=== PATIENT | female | born 1995 | race Caucasian/White ===

== ENCOUNTER 2022-12-19 21:02 | Emergency (ER) | payer OTHER ==
[~2022-12-19] VITALS: Ht 162.6 cm; Wt 68.0 kg
== END 2022-12-20 00:45 | disposition home or self-care (01) ==
LOC: ER 21:02
DX: L23.89 Allergic contact dermatitis due to other agents (principal)

== ENCOUNTER 2024-10-09 13:27 | Emergency (ER) | payer OTHER ==
[~2024-10-09] VITALS: Ht 162.6 cm; Wt 68.0 kg
[2024-10-09] MEDS ORDERED: ACETAMINOPHEN 500 MG GEL..CAP PO ONE (16:30)
[2024-10-09] MEDS ORDERED: 0.9 % SODIUM CHLORIDE 1,000 ML IV ONE (16:30)
[2024-10-09] MEDS ORDERED: ONDANSETRON HCL 2 MG/ML VIAL IV ONE (16:30)
[2024-10-09 17:47] LABS: HEMATOCRIT 34.9 % (36.0-45.00); HEMOGLOBIN 11.8 g/dL (12.0-15.00); MEAN CORPUSCULAR HEMOGLOBIN 28.3 pg (27.00-32.0); MEAN CORPUSCULAR HGB CONC 33.7 g/dl (32.0-36.0); RED BLOOD COUNT 4.16 M/uL (4.00-6.00); RED CELL DISTRIBUTION WIDTH 14.6 % (11.5-14.5)
[2024-10-09 17:52] LABS: PLATELET COUNT 100 K/uL (150-450)
[2024-10-09 18:00] LABS: ALBUMIN 3.5 gm/dL (3.4-5.0); BILIRUBIN TOTAL 0.92 mg/dL (0.3-1.2); CALCIUM 8.9 mg/dL (8.5-10.1); CREATININE SERUM 0.7 mg/dL (0.55-1.02); GFR 98.93; GLOBULINA 3.8 G/DL (2.4-3.5); POTASSIUM 3.92 mEq/L (3.5-5.1); TOTAL PROTEIN 7.3 gm/dL (6.4-8.2)
== END 2024-10-09 19:21 | disposition home or self-care (01) ==
LOC: ER 13:30
PROVIDERS: General Practice
DX: B34.9 Viral infection, unspecified (principal)